=== PATIENT | female | born 1965 | race Caucasian/White ===

== ENCOUNTER 2020-08-28 14:16 | Emergency (ER) | payer SELFPAY ==
[2020-08-28 14:30] VITALS: BP 129/74; PULSE 85; RESP 20; TEMP 36.8; O2SAT 98
--- NOTE | 2020-08-28 14:34 | ED.GENADULT ---
HPI - General Adult General Chief complaint: Neck Pain/Injury Stated complaint: Burning in Shoulders and Neck/Headache Time Seen by Provider: 08/28/20 15:00 Source: patient and RN notes reviewed Mode of arrival: ambulatory Limitations: no limitations History of Present Illness HPI narrative: 54-year-old female presents with concern for a burning pain between both shoulders and her neck. Reports symptoms started after she fell. She reports several days ago she fell on her butt, catching herself with her arms. She did not have any direct trauma to her neck, shoulders, head. She reports bilateral muscle aches between her shoulder and her neck that have evolved to a stinging pain. Reports the pain causes a headache. Reports she has been taking Aleve with some dulling of the pain and headache, and taking Tylenol. Reports she has been using heat patches. She denies any nausea, vomiting, thunderclap headache, weakness in any extremity. MD complaint: Shoulder pain Related Data Home Medications Medication Instructions Recorded Confirmed albuterol sulfate 90 mcg INHALATION Q6-8H PRN 08/28/20 08/28/20 amlodipine 5 mg PO DAILY 08/28/20 08/28/20 armodafinil 250 mg PO DAILY 08/28/20 08/28/20 fluticasone propion-salmeterol inh INHALATION Q12-24H PRN 08/28/20 [[facility]] lisinopril-hydrochlorothiazide 10 tablet PO DAILY 08/28/20 08/28/20 montelukast 10 mg PO BID 08/28/20 08/28/20 omeprazole 40 mg PO DAILY 08/28/20 08/28/20 Allergies Allergy/AdvReac Type Severity Reaction Status Date / Time oxytocin Allergy Mild RAPID Unverified 02/08/19 12:37 HEART RATE iodine Allergy Unknown RAPID Unverified 02/08/19 12:37 HEART RATE Review of Systems Review of Systems: Narrative: CONSTITUTIONAL: Denies malaise, chills, sweats, or fever. EYES: Denies visual changes CARDIOVASCULAR: Denies chest pain, palpitations, or edema. RESPIRATORY: Denies dyspnea. SKIN: Denies bruising, redness, warmth, lacerations, abrasions MUSCULOSKELETAL: Reports burning pain between her shoulder and her neck bilaterally NEUROLOGIC: Denies numbness, weakness. Reports headache. es anxiety or depression. All systems reviewed & are unremarkable except as noted in HPI and below PMFSH Social History Social History (System 02/08/19 @ 12:37 by Marcelina Gordon) Gender identity (if verbalized by the patient): Female Comments At time of signature, agree with nursing past medical, surgical, social and family history. There is no relevant family history pertinent to the presenting complaint Exam Narrative: Exam Narrative: GENERAL: Well-appearing, well-nourished, and in no acute distress. HEAD: Normocephalic, atraumatic. EYES: PERRLA, conjunctivae clear NECK: Supple. CHEST: Speaks in full sentences. No respiratory distress. HEART: Regular rate and rhythm. Normal and equal peripheral pulses. EXTREMITIES: Bilateral upper extremities have normal strength and sensation, normal range of motion. No edema or ecchymosis. 5/5 strength with upper extremity flexion and extension, abduction, abduction. Normal sensation with sensitivity to light touch and pain. No point tenderness. No open wounds, no skin tenting, no devitalized tissue or atrophy, no trophic changes, no obvious deformity, alignment normal, nearby joints and structures intact. Distal pulses palpable and equal bilaterally, skin warm, dry, pink. Capillary refill less than 3 seconds. No cervical tenderness SKIN: Warm, dry, no rash. NEURO: Alert and oriented x3. PSYCH: Normal mood and affect Course Course Emergency Course: Patient is aware of diagnosis, understands and agrees to treatment plan. Anticipatory guidance given. Patient agrees to follow-up as directed and is aware of reasons to seek care at the emergency department. Portions of this record may have been created with voice recognition software Vital Signs Vital signs: Vital Signs Temperature 98.3 F 08/28/20 14:30 Pulse Rate 85 07/05
== END 2020-08-28 15:09 | disposition home or self-care (01) ==
PROVIDERS: Emergency Provider Nurse Practitioner
DX: S46.919A Strain of unspecified muscle, fascia and tendon at shoulder and upper arm level, unspecified arm, initial encounter (principal); W19.XXXA Unspecified fall, initial encounter; E78.00 Pure hypercholesterolemia, unspecified; I10 Essential (primary) hypertension; K21.9 Gastro-esophageal reflux disease without esophagitis
CPT/HCPCS: 99213; G0463